=== PATIENT | male | born 1955 | race Caucasian/White ===

== ENCOUNTER → 2020-04-30 11:16 | Outpatient (CLI) | payer OTHER, SELFPAY ==
--- NOTE | ~2020-04-30 | XR_ITS ---
EXAMINATION: XR finger 3rd RT min 2V DATE: 04/30/2020 11:42 INDICATION: Pain at the right third digit TECHNIQUE: Dorsal palmar, lateral and 2 oblique views of the right third digit were obtained COMPARISON: None FINDINGS: Minimally displaced oblique tuft fracture at the tip of the right third distal phalanx. No other frac tures identified. Polyarticular osteoarthritis, moderate to severe at the third metacarpophalangeal j oint with prominent heterotopic ossicle without associated donor site dorsal base of the proximal pha lanx. Moderate osteoarthritis at the second metacarpophalangeal and first carpal metacarpal joints an d mild osteoarthritis at the fourth metacarpophalangeal and majority of the visualized interphalangea l joints. Cystic change within sclerotic margins at the scaphoid waist. IMPRESSION: 1. Minimally displaced tuft fracture at the right third distal phalanx. 2. Moderate to severe polyarticular osteoarthritis. Reviewed, dictated and finalized at location A.
== END ==
PROVIDERS: PCP Family Medicine; Visit Provider Nurse Practitioner Family
DX: M19.041 Primary osteoarthritis, right hand (principal)
CPT/HCPCS: 73140

== ENCOUNTER 2023-10-31 07:28 | Outpatient (CLI) | payer BC, SELFPAY ==
--- NOTE | ~2023-10-31 | US_ITS ---
EXAMINATION: US aorta DATE: 10/31/2023 08:15 INDICATION: Aortic dilatation. TECHNIQUE: Grayscale, color Doppler, and pulsed Doppler images of the aorta and common iliac arteries were obtained. COMPARISON: None. FINDINGS: Sensitivity is decreased by the patient's body habitus. The aorta demonstrates a fusiform infrarenal aneurysm measuring 3.0 cm. The common iliac arteries are not well visualized. IMPRESSION: 1. 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 Reviewed, dictated and finalized at location E.
== END 2023-10-31 07:29 ==
LOC: MICIMG 07:29
PROVIDERS: PCP Pediatrics; Visit Provider Pediatrics
DX: I71.40 Abdominal aortic aneurysm, without rupture, unspecified (principal)
CPT/HCPCS: 76775

== ENCOUNTER → 2025-01-07 15:18 | Outpatient (REF) | payer MEDICARE, SELFPAY ==
--- NOTE | 2025-01-07 15:18 | S_PTH ---
PATIENT: Burt Alicea LOC: [facility] U#:[id number] AGE/SX: 70/M ROOM: RE01/07/[address]: Awais Morillo MD : 1955 BED: DIS: SPEC #: [id number] RECD: 01/08/25 06:28 STATUS: THALIA APARICIO #: [id number] EVY: 01/07/25 15:[address]: Awais Morillo DEPT: [facility] Surgical RECD BY: Neva Hurtado ENTERED: 01/08/25 06:28 SP TYPE: Surgical OTHR DR: Jonathan Alvarado MD Tissues: A - Cyst Procedures: Hematoxylin and Eosin Stain Gross and Microscopic Level 4
--- OUTSIDE RECORDS SUMMARY | 2025-01-07 15:21 | XMS_ITS | Clinical Summary ---
Author Organization [facility] Address [address] [place] [address] Care Team Providers Care Manager Rn Case Name Role Phone Meghann Mak MD Unavailable UnavailKamille Huffman NP Primary Care Provider [phone] Rc Cunningham MD Unavailable [phone] Allergies No known active allergies Medications budesonide-form oterol (SYMBICORT) 160-4.5 MCG/ACT inhaler TAKE 2 PUFFS BY MOUTH TWICE A DAY IN THE MORNING AND IN THE EVENING 10/06/2022 Active JARDIANCE 10 MG tablet Take 1 tablet (10 mg total) by mouth every morning. 08/02/2022 Active lisinopril (PRINIVIL) 20 MG tablet Take 1 tablet (20 mg total) by mouth daily. 10/06/2022 Active metFORMIN ER (GLUCOPHAGE-XR) 500 MG 24 hr tablet TAKE 2 TABLET(S) BY MOUTH TWO TIMES A DAY 07/24/2022 Active rosuvastatin (CRESTOR) 40 MG tablet Take 1 tablet (40 mg total) by mouth daily. 07/24/2022 Active RYBELSUS 14 MG Tab TAKE 1 TABLET BY MOUTH EVERY MORNING 30 MINUTES BEFORE FOOD/DRINK 10/07/2022 Active Pumpkin Seed-Soy Germ (AZO BLADDER CONTROL/GO-LESS OR) Take 1 tablet by mouth 2 (two) times daily as needed. Active aspirin EC (ECOTRIN) 81 MG tablet Take 1 tablet (81 mg total) by mouth daily. Active phenazopyridine (PYRIDIUM) 200 MG tablet TAKE 1 TABLET THREE TIMES A DAY AFTER MEALS NEEDED 11/01/2022 Active traMADol (ULTRAM) 50 MG tablet 10/25/2022 Active pantoprazole EC (PROTONIX) 20 MG tablet Take 1 tablet (20 mg total) by mouth daily as needed (reflux). 30 tablet 06/27/2023 Active Active Problems Problem Noted Date Diagnosed Date Hypercalcemia 06/24/2023 Tobacco abuse counseling 10/26/2022 COPD (chronic obstructive pu lmonary disease) ([facility]) 10/19/2022 Kidney stone 10/18/2022 Overview (10/18/2022): Added automatically from request for surgery [id number] Cellulitis 10/01/2020 Hyperlipidemia LDL goal <70 10/01/2020 Essential (primary) hypertension 10/01/2020 Obesity 10/01/2020 Sepsis ([facility]) 10/01/2020 Tobacco abuse 10/01/2020 Type 2 diabetes mellitus ([facility]) 10/01 COPD (chronic obstructive pu lmonary disease) ([facility]) 11/27/2014 Overview (10/19/2022): Date Onset: 11/27/2014 Resolved Problems Problem Noted Date Diagnosed Date Resolved Date Pre-operative cardiovascular examination 10/26/2022 10/31/2022 Encounters Date Type Department Care Team Description 11/18/2024 8:00 AM CDT - 11/18/2024 11:59 PM CDT Hospital Encounter [facility] [address] [place] [address] Jonathan Alvarado MD Discharge Disposition: Home or Self Care (Routine Discharge) 11/18/2024 Travel from Last 3 Months Family History Relation Status Comments Father Mother Social History Tobacco Use Types Packs/Day Years Used Date Smoking Tobacco: Every Day Cigarettes 2 55 Passive Smoke Exposure: Current Smokeless Tobacco: Never Tobacco Cessation:Ready to Q uit: No; Counseling Given: Yes Alcohol Use Standard Drinks/Week Comments Not Currently 0 (1 standard drink = 0.6 oz pur e alcohol) [facility] Utilities Answer Date Recorded In the past 12 months has [facility] [employer], [employer], or [email or web address] threatened to shut off services in your home? Patient unable to answer 06/26/2023 Humiliation, Afraid, Rape, a nd Kick questionnaire Answer Date Recorded Within the last year, have y ou been afraid of your partner or ex-partner? Patient unable to answer 06/26/2023 Within the last year, have y ou been humiliated or emotionally abused in other ways by your partner or ex-partner? Patient unable to answer 06/26/2023 Within the last year, have y ou been kicked, hit, slapped, or otherwise physically hurt by your partner or ex-partner? Patient unable to answer 06/26/2023 Within the last year, have y ou been raped or forced to have any kind of sexual activity by your partner or ex-partner? Patient unable to answer 06/26/2023 Overall Financial Resource Strain (CARDIA) Answe r Date Recorded How hard is it for you to pa y for the very basics like food, housing, medical care, and heating? Patient unable to answer 06/26/2023 PHQ-2 Answer Date Recorded Patient Health Questionnaire-2 Score 0 10/19/2022 Hunger Vital Sign Answer Date Recorded Within the past 12 months, y ou worried that your food would run out before you got the money to buy more. Patient unable to answer 06/26/2023 Within the past 12 months, t he food you bought just didn't last and you didn't have money to get more. Patient unable to answer 06/26/2023 PRAPARE - Transportation Answer Date Re corded In the past 12 months, has l ack of transportation kept you from medical appointments or from getting medications? Patient unable to answer 06/26/2023 In the past 12 months, has l ack of transportation kept you from meetings, work, or from getting things needed for daily living? Patient unable to answer 06/26/2023 Housing Stability Vital Sign Answer Wilbur e Recorded In the last 12 months, was t here a time when you were not able to pay the mortgage or rent on time? Patient unable to answer 06/26/2023 Number of Places Lived in the Last Year Not on f ile 06/26/2023 In the last 12 months, was t here a time when you did not have a steady place to sleep or slept in a fci (including now)? 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 Not on file Not on file Not on file Last Filed Vital Signs Vital Sign Reading Time Taken Comments Blood Pressure 106/55 06/27/2023 7:30 AM TOE TRIMMER Pulse 62 06/27/2023 7:30 AM TOE TRIMMER Temperature 37 C (98.6 F) 06/27/2023 7:30 AM TOE TRIMMER Respiratory Rate 14 06/26/2023 8:01 AM TOE TRIMMER Oxygen Saturation 94% 06/27/2023 7:30 AM TOE TRIMMER Inhaled Oxygen Concentration - - Weight 116.8 kg (257 lb 9.6 oz) 06/26/2023 4:36 AM TOE TRIMMER Height 182.9 cm (6') 06/24/2023 2:59 AM TOE TRIMMER Body Mass Index 34.94 06/24/2023 2:59 AM TOE TRIMMER Plan of Treatment Health Maintenance Due Date Last Done Comments Colorectal Cancer Screening Colonoscopy (10 Years) 1955 Kidney Health Evaluation 1955 Diabetes: Retinopathy Eye Exam 02/19/1974 Hepatitis C 02/19/1974 DTaP, Tdap and Td Vaccines ( 1 - Tdap) 02/19/1975 Pneumococcal Vaccine: 50+ Ye ars (1 of 2 - PCV) 02/19/1975 Zoster Vaccines (1 of 2) 02/19/2006 Lipid Panel 04/23/2008 04/23/2007 RSV Immunization or 60+ Years (1 - Risk 60-74 years 1-dose series) 2016 Annual Medicare Wellness Visit 02/19/2021 Hemoglobin A1C 12/24/2023 06/24/2023 COVID-19 Vaccine (1 - 2023-2 5 season) 2024 PHQ-2 (Physician Muddy) 07/10/2024 Meningococcal B Vaccine Aged Out No l onger eligible based on patient's age to complete this topic Meningococcal Vaccine Aged Out No rene geri eligible based on patient's age to complete this topic RSV Immunizations Under 20 Months Aged Out No longer eligible based on patient's age to complete this topic Procedures Procedure Name Priority Date/Time Associated Diagnosis Comments US AORTA Routine 11/18/2024 8:43 AM CDT Essential (primary) hypertension Elevated carbon dioxide level Polycythemia Snoring Tobacco use HEMOGLOBIN, GLYCOSYLATED Routine 06/24/2023 6:10 AM TOE TRIMMER LIPID PANEL Routine 04/23/2007 12:00 AM CDT from Last 3 Months or Most Recently Relevant to Health Maintenance Results * US AORTA (11/18/2024 8:43 AM CDT) Anatomical Region Laterality Modality Abdomen Computed Tomogra phy 11/18/2024 9:11 AM CDT Impressions 11/18/2024 9:15 AM CDT IMPRESSION: 1. Limited exam demonstrates no evidence of abdominal aortic aneurysm. 2. CT abdomen and pelvis of 06/24/2023 demonstrated normal caliber to the abdominal aorta with mild multiple sclerosis. Ordered By: JONATHAN ALVARADO Interpreted By: Gustavo Hudson, 11/18/2024 9:11 AM Narrative 11/18/2024 9:15 AM CDT [address] [place] [address] IMAGING STUDIES: US AORTA DATE: 11/18/2024 8:07 AM CLINICAL HISTORY: ESSENTIAL PRIMARY HYPERTENSION . Prior history of 3 cm aneurysm FINDINGS: Exam is limited due to overlying bowel and patient body habitus. Atherosclerotic aorta THE PROXIMAL ABDOMINAL AORTA IS OBSCURED BY OVERLYING BOWEL THE MID ABDOMINAL AORTA MEASURES 2.0 x 1.9 cm IN THE AXIAL PLANE. THE INFRARENAL ABDOMINAL AORTA MEASURES APPROXIMATELY 2.4 x 2.3 cm. . Normal caliber to both common iliac arteries Procedure Note Benja Hudson MD - 11/18/[address] [place] [address] IMAGING STUDIES: US AORTADATE: 11/18/2024 8:07 AM CLINICAL HISTORY: ESSENTIAL PRIMARY HYPERTENSION . Prior history of 3cm aneurysm FINDINGS: Exam is limited due to overlying bowel and patient body habitus.Atherosclerotic aorta THE PROXIMAL ABDOMINAL AORTA IS OBSCURED BY OVERLYING BOWEL THE MID ABDOMINAL AORTA MEASURES 2.0 x 1.9 cm IN THE AXIAL PLANE. THE INFRARENAL ABDOMINAL AORTA MEASURES APPROXIMATELY 2.4 x 2.3 cm. . Normal caliber to both common iliac arteries IMPRESSION: 1. Limited exam demonstrates no evidence of abdominal aortic aneurysm. 2. CT abdomen and pelvis of 06/24/2023 demonstrated normal caliber to theabdominal aorta with mild multiple sclerosis. Ordered By: JONATHAN ALVARADO Interpreted By: Gustavo Hudson, 11/18/2024 9:11 AM Jonathan Alvarado MD ULTRASOUND Final Result * (ABNORMAL) HEMOGLOBIN, GLYCOSYLATED (06/24/2023 6:10 AM TOE TRIMMER) HGB A1C 6.5(H) <5.7 % 06/24/2023 4:31 PM TOE TRIMMER [facility] ESTIMATED AVG GLUCOSE 140(H) 74 - 114 MG/DL 06/24/2023 4:31 PM TOE TRIMMER [facility] 06/24/2023 6:10 AM TOE TRIMMER Gume Jenkins NP LABORATORY Final Result [facility] [address] [place] [id number], [id number] * LIPID PANEL (04/23/2007 12:00 AM CDT) TRIGLYCERIDES 298 0 - 150 mg/dl [employer] TO EPIC CONVERSION CHOLESTEROL 164 0 - 200 mg/dl [employer] TO EPIC CONVERSION HDL 28 40 - 59 mg/dl [employer] TO EPIC CONVERSION LDL CONVERSION 76 0 - 100 mg/dl [employer] TO EPIC CONVERSION 04/23/2007 04/23/2007 Generic Conversion Md [facility] Final R esult MEDIN[employer] TO EPIC CONVERSION from Last 3 Months or Most Recently Relevant to Health Maintenance Insurance Advance Directives * Full Code (Latest Code Status on File) Date Activated Date Inactivated Comments 06/24/2023 3:01 AM 06/27/2023 3:10 PM Care Teams Manager Rn Case Relationship Specialty Start Date End Date Kamille Clemons NP [address] [place] [address] PCP - General NURSE PRACTITIONER 10/25/22 Meghann Mak MD Consulting Physician CARDIOVASCULAR DISEASE 10/25/22 Rc Cunningham MD [address] [place] [address] Surgeon UROLOGY 10/25/22
--- OUTSIDE RECORDS SUMMARY | 2025-01-07 15:21 | XMS_ITS | Encounter Summary ---
Author Organization [facility] Address [address] [place] [address] Care Team Providers Care Counterintelligence Analyst Name Role Phone Asia Loza MD Primary Care Provider Kamille Clemons NP Unavailable [phone] Meghann Mak MD Unavailable Unavailabl e Kamille Clemons NP Primary Care Provider [phone] Rc Cunningham MD Unavailable [phone] Encounter Details Date Type Department Care Team (Late st Contact Info) Description 10/19/2022 [facility] Documentation [facility] Urology [address] [place] [address] Rc Cunningham MD [address] [place] [address] Social History Tobacco Use Types Packs/Day Years Used Date Smoking Tobacco: Every Day Cigarettes 2 55 Passive Smoke Exposure: Current Smokeless Tobacco: Never Alcohol Use Standard Drinks/Week Comments Never 0 (1 standard drink = 0.6 oz pur e alcohol) PHQ-2 Answer Date Recorded Patient Health Questionnaire-2 Score 0 10/19/2022 Sex and Gender Information Value Date Recorded Sex Assigned at Male 11/18/2024 8:11 AM CDT Legal Sex Male 9:46 PM CDT Gender Identity Not on file Sexual Orientation Not on file Occupation Industry Job Start Date Job End Date construction, 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 No / Unsure 10/16/2022 2:56 PM CDT documented as of this encounter Functional Status * Over the past 2 weeks, how often have you been bothered by any of the following problems? Question Answer Date of Assessment Author Status Little interest or pleasure in doing things Not at all 10/19/2022 11:29 AM CDT Ingris Gloria, RN Acti ve Feeling down, depressed, or hopeless Not at all 10/19/2022 11:29 AM CDT Ingris Gloria, JAZZMINE Active Patient Health Questionnaire-2 Score 0 10/19/2022 11:29 AM CDT Ingris Gloria R N Active documented as of this encounter Plan of Treatment Not on file documented as of this encounter Visit Diagnoses Not on filedocumented in this encounter Care Teams Counterintelligence Analyst Relationship Specialty Start Date End Date Asia Loza MD [address] [place] [id number] PCP - General FAMILY PRACTICE 03/24/22 10/24/22 Kamille Clemons NP [address] [place] [address] PCP - General NURSE PRACTITIONER 10/25/22 Kamille Clemons NP [address] [place] [address] NURSE PRACTITIONER 10/25/22 10/25/22 Meghann Mak MD [address] [place] [id number] Consulting Physician CARDIOVASCULAR DISEASE 10/25/22 Rc Cunningham MD [address] [place] [id number] Surgeon UROLOGY 10/25/22 documented as of this encounter
--- OUTSIDE RECORDS SUMMARY | 2025-01-07 15:21 | XMS_ITS | Encounter Summary ---
Author Organization [facility] Address [address] [place] [address] Care Team Providers Care High Lift Operator Name Role Phone Asia Loza MD Primary Care Provider Kamille Clemons NP Unavailable [phone] Meghann Mak MD Unavailable Unavailabl e Kamille Clemons NP Primary Care Provider [phone] Rc Cunningham MD Unavailable [phone] Encounter Details Date Type Department Care Team (Late st Contact Info) Description 10/18/2022 Prep for Procedure [facility] Urology [address] [place] [address] Rc Cunningham MD [address] [place] [address] Social History Tobacco Use Types Packs/Day Years Used Date Smoking Tobacco: Smoker, Current Status Unknown PHQ-2 Answer Date Recorded Patient Health Questionnaire-2 Score 0 10/19/2022 Sex and Gender Information Value Date Recorded Sex Assigned at Male 11/18/2024 8:11 AM CDT Legal Sex Male 9:46 PM CDT Gender Identity Not on file Sexual Orientation Not on file COVID-19 Exposure Response Date [...] things Not at all 10/19/2022 11:29 AM Ingris You, RN Acti ve Feeling down, depressed, or hopeless Not at all 10/19/2022 11:29 AM Ingris You RN Active Patient Health Questionnaire-2 Score 0 10/19/2022 11:29 AM Ingris You R N Active documented as of this encounter Plan of Treatment Not on file documented as of this encounter Visit Diagnoses Not on filedocumented in this encounter Care Teams High Lift Operator Relationship Specialty Start Date End Date Asia Loza MD [address] [place] [address] PCP - General FAMILY PRACTICE 03/24/22 10/24/22 Kamille Clemons NP [address] [place] [address] PCP - General NURSE PRACTITIONER 10/25/22 Kamille Clemons NP [address] [place] [id number] NURSE PRACTITIONER 10/25/22 10/25/22 Meghann Mak MD [address] [place] [id number] Consulting Physician CARDIOVASCULAR DISEASE 10/25/22 Rc Cunningham MD [address] [place] [address] Surgeon UROLOGY 10/25/22 documented as of this encounter
== END ==
LOC: ANHLAB 15:18
PROVIDERS: PCP Pediatrics; Visit Provider Plastic Surgery
DX: L72.3 Sebaceous cyst (principal); L08.9 Local infection of the skin and subcutaneous tissue, unspecified
CPT/HCPCS: 88305